=== PATIENT | male | born 1990 | race Two or more races ===

== ENCOUNTER 2017-05-31 04:24 | Emergency (ER) | payer SELFPAY ==
[2017-05-31 08:21] VITALS: BP 112/78
[2017-05-31 08:41] LABS: Albumin 4.4 g/dL (3.2-5.2); BUN/Creatinine Ratio 19.8 (8-20); Calcium 9.5 mg/dL (8.6-10.3); EGFR African American 110.4 (>60); EGFR Non-African American 85.8 (>60); Total Bilirubin 0.4 mg/dL (0.2-1.0); Total Protein 7.4 g/dL (6.4-8.9)
--- NOTE | 2017-06-07 23:10 | ED ---
Colt Quezada Auryana, scribed for Hira Honeycutt MD on 05/31/17 at 0742 . Complex/Multi-Sys Presentation - HPI Summary HPI Summary: 26 year old male presents to the ED s/p blood exposure last night. 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 Patient reports that he had blood contact on the right arm while managing intoxicated individual. He is unsure if he had any facial contact with the blood - unknown status of communicable disease- possibility of drug use. He denies any open scabs or wounds other than insect bites. communicable dz - unknown - drug related - not sure body lfuid exposure PE - DDx - clinicall obvious ad no concern from infectious disease exposure. - History Of Current Complaint Chief Complaint: EDExposureBodyFluid Time Seen by Provider: 05/31/17 07:35 Hx Obtained From: Patient Onset/Duration: Sudden Onset, Resolved Timing: Intermittent, Lasting: Severity Currently: Mild Severity Initially: Mild Location: Negative Associated Signs And Symptoms: Positive: Other - blood contact - no abrasions, or any open wounds - Allergies/Home Medications Allergies/Adverse Reactions: Allergies Allergy/AdvReac Type Severity Reaction Status Date / Time Penicillins Allergy Unknown Unknown Verified 10/24/16 19:45 Reaction Details PMH/Surg Hx/FS Hx/Imm Hx Infectious Disease History: No Infectious Disease History: Reports: History Other Infectious Disease - "STAPH INFECTION" Denies: Traveled Outside the [place] in Last 30 Days - Family History Known Family History: Positive: Diabetes Negative: Other - arthritis - Social History Alcohol Use: Rare Hx Substance Use: No Substance Use Type: Reports: None Hx Tobacco Use: No Smoking Status (MU): Never Smoked Tobacco Review of Systems All Other Systems Reviewed And Are Negative: Yes Physical Exam - Summary Physical Exam Summary: General: Well appearing, no distress Cardiovascular: Skin is well perfused Pulmonary: No respiratory distress, no tachypnea Abdomen: Non-distended Skin: Warm, pink, dry Psych: Normal affect Neuro: A&Ox3 Vital Signs On Initial Exam: Initial Vitals Temp Pulse Resp BP Pulse Ox 97.6 F 97 14 140/84 98 05/31/17 04:29 05/31/17 04:29 05/31/17 04:29 05/31/17 04:29 05/31/17 04:29 Diagnostics - Vital Signs Vital Signs Temp Pulse Resp BP Pulse Ox 05/31/17 04:29 97.6 F 97 14 140/84 98 - Laboratory Lab Results: Lab Results 05/31/17 05/31/17 Range/Units 06:40 06:40 Sodium 135 (133-145) mmol/L Potassium 4.0 (3.5-5.0) mmol/L Chloride 101 (101-111) mmol/L Carbon Dioxide 28 (22-32) mmol/L Anion Gap 6 (2-11) mmol/L BUN 21 (6-24) mg/dL Creatinine 1.06 (0.67-1.17) mg/dL Est GFR ( Amer) 110.4 (>60) Est GFR (Non-Af Amer) 85.8 (>60) BUN/Creatinine Ratio 19.8 (8-20) Glucose 84 (70-100) mg/dL Calcium 9.5 (8.6-10.3) mg/dL Total Bilirubin 0.40 (0.2-1.0) mg/dL AST 26 (13-39) U/L ALT 28 (7-52) U/L Alkaline Phosphatase 53 (34-104) U/L Total Protein 7.4 (6.4-8.9) g/dL Albumin 4.4 (3.2-5.2) g/dL Globulin 3.0 (2-4) g/dL Albumin/Globulin Ratio 1.5 (1-3) Hepatitis C Antibody Nonreactive (Nonreactive) HIV 1&2 Antibody Rapid Cancelled HIV 1&2 Antibody Nonreactive (Nonreactive) Result Diagrams: 05/31/17 06:40 Lab Statement: Any lab studies that have been ordered have been reviewed, and results considered in the medical decision making process. Complex Multi-Symp Course/Dx - Diagnoses Provider Diagnoses: Exposure to blood Discharge - Discharge Plan Condition: Stable Disposition: HOME Patient Education Materials: Body Substance Exposure (ED) Referrals: Robert Garner NP [Primary Care Provider] - 3 Days The documentation as recorded by the Colt inman Auryana accurately reflects the service I personally performed and the decisions made by , Hira Honeycutt MD.
== END 2017-05-31 08:19 | disposition home or self-care (01) ==
LOC: ED 04:24
DX: Z77.21 Contact with and (suspected) exposure to potentially hazardous body fluids (principal); Z88.0 Allergy status to penicillin; Z11.4 Encounter for screening for human immunodeficiency virus [HIV]
CPT/HCPCS: 36415; 80053; 86703; 86803; 99283

== ENCOUNTER 2018-02-17 13:39 | Emergency (ER) | payer SELFPAY ==
[2018-02-17 14:37] VITALS: BP 156/70
--- NOTE | 2018-02-17 15:02 | UC ---
Abdominal Pain Male HPI - HPI Summary HPI Summary: Starting yesterday he began with right lower quadrant abd pain and fever. he has had uri symptoms leading up to this. He denies diarrhea, vomiting, blood in stool, urinary symptoms of any kind. He has no hx of abd surgery and no medical problems. No chronic meds. The pain is a little better today but yeast distiller in rlq. - History of Current Complaint Chief Complaint: UCAbdominalPain Stated Complaint: ABDOMINAL PAIN, FEVER Time Seen by Provider: 02/17/18 14:42 Hx Obtained From: Patient Onset/Duration: Gradual Onset, Lasting Hours Timing: Constant Severity Initially: Moderate Severity Currently: Moderate Pain Intensity: 5 Location: Diffuse, Discrete At: RLQ - There some discomfort in many locations but rlq is the worst. Radiates: No Character: Aching, Cramping Aggravating Factor(s): Nothing Alleviating Factor(s): Nothing Associated Signs And Symptoms: Positive: Fever. Negative: Constipation, Blood in Stool, Urinary Symptoms, Decreased Appetite, Nausea, Vomiting, Diarrhea, Penile Discharge - Allergies/Home Medications Allergies/Adverse Reactions: Allergies Allergy/AdvReac Type Severity Reaction Status Date / Time Penicillins Allergy Unknown Verified 02/17/18 14:31 Reaction Details Home Medications: Home Medications NK [No Home Medications Reported] 02/17/18 [History Confirmed 02/17/18] PMH/Surg Hx/FS Hx/Imm Hx Previously Healthy: Yes - Surgical History Surgical History: None - Family History Known Family History: Positive: Diabetes Negative: Other - arthritis - Social History Alcohol Use: None Substance Use Type: None Smoking Status (MU): Never Smoked Tobacco Review of Systems Constitutional: Fever Gastrointestinal: Abdominal Pain All Other Systems Reviewed And Are Negative: Yes Physical Exam Triage Information Reviewed: Yes Appearance: Well-Appearing, No Pain Distress, Well-Nourished Vital Signs: Initial Vital Signs Temp 99.4 F 02/17/18 14:30 Pulse 82 02/17/18 14:30 Resp 14 02/17/18 14:30 BP 156/70 02/17/18 14:30 Pulse Ox 98 02/17/18 14:30 Vital Signs Reviewed: Yes Eyes: Positive: Conjunctiva Clear ENT: Positive: Normal ENT inspection Neck: Positive: Supple, Nontender, No Lymphadenopathy Respiratory: Positive: Normal breath sounds, No respiratory distress, No accessory muscle use. Negative: Respiratory distress, Decreased breath sounds, Accessory muscle use, Crackles, Rhonchi, Stridor, Wheezing Cardiovascular: Positive: No Murmur, Pulses Normal, Tachycardia Abdomen Description: Positive: No Organomegaly, McBurney's Point Tenderness. Negative: CVA Tenderness (R), CVA Tenderness (L), Distended, Guarding Musculoskeletal: Positive: Strength Intact, ROM Intact, No Edema Neurological: Positive: Alert, Muscle Tone Normal. Negative: Fatigued Psychological: Positive: Age Appropriate Behavior Skin: Negative: rashes Abd Pain Male Course/Dx - Course Course Of Treatment: Discussed at length with patient and significant other about the possibility of appendicitis. This is an atypical presentation. Labs and sed rate may be a good start and possible CT. No ct available here today. D/ w Dr. Goodson in [place] [facility] who accepts patient. - Differential Dx/Clinical Impression Differential Diagnosis/HQI/PQRI: Appendicitis, Constipation, Diverticulitis, Epididymitis, Hepatitis, Pancreatitis, Testicular Torsion, Ureteral Stone, Urinary Tract Infection Provider Diagnoses: acute abd pain. fever. Discharge - Sign-Out/Discharge Documenting (check all that apply): Discharge - Discharge Plan Condition: Guarded Disposition: HOME Patient Education Materials: Acute Abdominal Pain (ED) Referrals: Robert Garner, [employer] ASSISTANT TEACHER [Primary Care Provider] - Additional Instructions: Please report directly to the ED in [place] as we discussed. - Billing Disposition and Condition Condition: GUARDED Disposition: HOME
== END 2018-02-17 14:59 | disposition home or self-care (01) ==
LOC: UCCORT 13:39
DX: R10.31 Right lower quadrant pain (principal); R50.9 Fever, unspecified; Z88.0 Allergy status to penicillin
CPT/HCPCS: 99212; G0463

== ENCOUNTER 2018-05-13 18:51 | Emergency (ER) | payer BC ==
[2018-05-13 19:08] VITALS: BP 122/71
[2018-05-13] MEDS ORDERED: Tetan/Diph/Pertus SYR(Tdap)* 0.5 ML SYR(BOOSTRIX) use SYR IM ONE (19:27)
--- NOTE | 2018-05-13 19:36 | UC ---
Skin Complaint HPI - HPI Summary HPI Summary: scrap and superficial PW to left foot, (patient was barefooted) about 2 hours ago - History of Current Complaint Chief Complaint: UCLowerExtremity Time Seen by Provider: 05/13/18 19:22 Stated Complaint: LEFT FOOT PUNCTURE Hx Obtained From: Patient Onset/Duration: Sudden Onset Timing: Constant Pain Intensity: 1 Pain Scale Used: 0-10 Numeric Location: Discrete - bottom of left foot Aggravating Factor(s): Nothing Alleviating Factor(s): Nothing Associated Signs & Symptoms: Positive: Negative - Allergy/Home Medications Allergies/Adverse Reactions: Allergies Allergy/AdvReac Type Severity Reaction Status Date / Time Penicillins Allergy Unknown Verified 02/17/18 14:31 Reaction Details Home Medications: Home Medications Cholecalciferol TAB* [Vitamin D TAB*] 1 each PO DAILY 05/13/18 [History Confirmed 05/13/18] Multivit-Min/Iron Fum/Folic AC [Htiuo-Cdizvnq-Ffftkwbu Tablet] 1 each PO DAILY 05/13/18 [History Confirmed 05/13/18] [place]-3 Fatty Acids (Nf) [Fish Oil (NF)] 1 each PO DAILY 05/13/18 [History Confirmed 05/13/18] Safflower Oil/Linoleic Acid,Co [Cla 1,000 mg Softgel] 1 each PO DAILY 05/13/18 [ History Confirmed 05/13/18] Review of Systems Constitutional: Negative Skin: Other - small pw/scrap bottom of left foot Eyes: Negative ENT: Negative Respiratory: Negative Cardiovascular: Negative Gastrointestinal: Negative Genitourinary: Negative Motor: Negative Neurovascular: Negative Musculoskeletal: Negative Neurological: Negative Psychological: Negative Is Patient Immunocompromised?: No All Other Systems Reviewed And Are Negative: Yes PMH/Surg Hx/FS Hx/Imm Hx Previously Healthy: Yes - Surgical History Surgical History: None - Family History Known Family History: Positive: Diabetes Negative: Other - arthritis - Social History Occupation: Employed Full-time Lives: With Family Alcohol Use: None Substance Use Type: None Smoking Status (MU): Never Smoked Tobacco Physical Exam Triage Information Reviewed: Yes Appearance: Well-Appearing, No Pain Distress, Well-Nourished Vital Signs: Initial Vital Signs Temp 98.6 F 05/13/18 19:01 Pulse 74 05/13/18 19:01 Resp 16 05/13/18 19:01 BP 122/71 05/13/18 19:01 Pulse Ox 99 05/13/18 19:01 Vital Signs Reviewed: Yes Eye Exam: Normal Eyes: Positive: Conjunctiva Clear ENT Exam: Normal ENT: Positive: Normal ENT inspection, Hearing grossly normal, Pharynx normal. Negative: Trismus, Muffled voice, Hoarse voice Dental Exam: Normal Neck exam: Normal Neck: Positive: Supple, Nontender Respiratory Exam: Normal Respiratory: Positive: Chest non-tender, No respiratory distress, No accessory muscle use Cardiovascular Exam: Normal Cardiovascular: Positive: RRR, Pulses Normal, Brisk Capillary Refill Musculoskeletal Exam: Normal Musculoskeletal: Positive: Strength Intact, ROM Intact, No Edema Neurological Exam: Normal Neurological: Positive: Alert, Muscle Tone Normal Psychological Exam: Normal Skin Exam: Normal Skin: Positive: Other - red area size of pen dot to bottom of left foot Course/Dx - Course Course Of Treatment: up date tetanus, warm soaks, observe for s/s of infection follow with pcp prn - Diagnoses Provider Diagnoses: pw/scrap left foot, update tetanus Discharge - Sign-Out/Discharge Documenting (check all that apply): Discharge/Admit/Transfer - Discharge Plan Condition: Stable Disposition: HOME Patient Education Materials: Diphtheria/Acellular Pertussis/Tetanus Booster Vaccine (By injection), Puncture Wound (ED), Warm Compress or Soak (ED) Forms: *Work Release Referrals: Robert Garner NP [Primary Care Provider] - If Needed - Billing Disposition and Condition Condition: STABLE Disposition: Home
== END 2018-05-13 19:45 | disposition home or self-care (01) ==
LOC: UCCORT 18:51
DX: S91.332A Puncture wound without foreign body, left foot, initial encounter (principal); X58.XXXA Exposure to other specified factors, initial encounter; Y93.9 Activity, unspecified; Y92.9 Unspecified place or not applicable; Z88.0 Allergy status to penicillin
CPT/HCPCS: 90471; 90715; 99211; G0463

== ENCOUNTER 2018-08-17 11:13 | Emergency (ER) | payer BC, OTHER ==
--- NOTE | 2018-08-17 11:17 | ED ---
Lower Extremity - HPI Summary HPI Summary: Pt. is a 28 y.o male who presents to the ER for a right ankle injury that occurred today. 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 No other injuries sustained. Is able to ambulate with pain. Symptoms are mild in severity. Walking makes symptoms worse. Rest makes symptoms better. - History of Current Complaint Stated Complaint: RT ANKLE PAIN Time Seen by Provider: 08/17/18 11:17 Hx Obtained From: Patient - Allergies/Home Medications Allergies/Adverse Reactions: Allergies Allergy/AdvReac Type Severity Reaction Status Date / Time Penicillins Allergy Unknown Verified 08/17/18 11:25 Reaction Details PMH/Surg Hx/FS Hx/Imm Hx Previously Healthy: Yes Infectious Disease History: Reports: History Other Infectious Disease - "STAPH INFECTION" - Family History Known Family History: Positive: Diabetes Negative: Other - arthritis - Social History Occupation: Employed Full-time Lives: With Family Alcohol Use: None Hx Substance Use: No Substance Use Type: Reports: None Hx Tobacco Use: No Smoking Status (MU): Never Smoked Tobacco Review of Systems Positive: Other - right ankle pain Skin: Negative Neurological: Negative Negative: Weakness, Paresthesia, Numbness All Other Systems Reviewed And Are Negative: Yes Physical Exam Triage Information Reviewed: Yes Vital Signs Reviewed: Yes Appearance: Positive: Well-Appearing - Pt. lying in bed in NAD. Pleasant. Skin: Positive: Warm, Dry Head/Face: Positive: Normal Head/Face Inspection Eyes: Positive: Normal, EOMI Neck: Positive: Supple Musculoskeletal: Positive: Other - Moderate soft tissue edema over right lateral malleolus. Good palpable pedial pulse. No foot pain or pain over base of 5th metatarsal. No proximal tib/fib or knee pain. No breaks in the skin. Neurological: Positive: Normal, CN Intact II-III Psychiatric: Positive: Affect/Mood Appropriate Lower Extremity Course/Dx - Course Course Of Treatment: Pt. presenting for isoloated ankle injury. Xray shows soft tissue edema and effusion without fx or dislocation, per radiology. Results discussed with pt. advised ice and elevation. Anti-inflammatories. Ankle was splinted and crutched. Advised to schedule follow-up appointment with orthopedics if pain and swelling persists for further evaluation of possible ligamental tear. Patient understands and agrees with plan. - Diagnoses Differential Diagnosis/HQI/PQRI: Positive: Fracture (Closed), Sprain, Strain Provider Diagnoses: Ankle sprain Discharge - Sign-Out/Discharge Documenting (check all that apply): Patient Departure - Discharge Plan Condition: Good Disposition: HOME Patient Education Materials: Ankle Sprain (ED) Forms: *Work Release Referrals: Blaine Armas MD [Medical Doctor] - Robert Garner NP [Primary Care Provider] - Additional Instructions: Schedule a follow up appointment with orthopedics, Dr. Armas, if swelling and pain persist Ice and elevate Wear splint for comfort and support Tylenol or Motrin for pain as directed Return to ER if symptoms change or worsen - Billing Disposition and Condition Condition: GOOD Disposition: Home
[2018-08-17 11:24] VITALS: BP 144/90
--- NOTE | 2018-08-17 11:49 | RAD ---
HISTORY: injury, lateral malleolus pain COMPARISONS: January 02, 2011 VIEWS: 3 , Frontal, lateral, and oblique views of the right ankle FINDINGS: BONE DENSITY: Normal. BONES: There is no displaced fracture. JOINTS: There is no arthropathy. There is a small joint effusion. ALIGNMENT: There is no dislocation. SOFT TISSUES: There is soft tissue swelling most pronounced along the lateral malleolus. OTHER FINDINGS: None. IMPRESSION: 1. SOFT TISSUE SWELLING. 2. JOINT EFFUSION. 3. NO ACUTE OSSEOUS INJURY. IF SYMPTOMS PERSIST, RECOMMEND REPEAT IMAGING.
== END 2018-08-17 12:30 | disposition home or self-care (01) ==
LOC: ED 11:13
DX: S93.401A Sprain of unspecified ligament of right ankle, initial encounter (principal); X50.9XXA Other and unspecified overexertion or strenuous movements or postures, initial encounter; Y93.02 Activity, running; Y92.9 Unspecified place or not applicable; Z88.0 Allergy status to penicillin
CPT/HCPCS: 99282

== ENCOUNTER 2019-10-04 11:00 | Emergency (ER) | payer BC ==
--- NOTE | 2019-10-04 11:40 | UC ---
Eye Complaint HPI - HPI Summary HPI Summary: 29 yo male presents with an eye complaint. He tells me that he has children at home and they have had friends over recently. This morning pt woke up with his left eye red and crusted shut - used a wash cloth to wipe it away. Has been itching and red since. He does not wear glasses or contacts. Denies fever, chills, sinus symptoms, sore throat, cough, or FB into eye. No vision changes - History of Current Complaint Stated Complaint: LEFT EYE COMPLAINT Time Seen by Provider: 10/04/19 11:40 Hx Obtained From: Patient Onset/Duration: Sudden Onset Timing: Constant Severity Initially: Mild Severity Currently: Mild Pain Intensity: 2 Pain Scale Used: 0-10 Numeric - Allergies/Home Medications Allergies/Adverse Reactions: Allergies Allergy/AdvReac Type Severity Reaction Status Date / Time Penicillins Allergy Unknown Verified 10/04/19 11:42 Reaction Details PMH/Surg Hx/FS Hx/Imm Hx - Additional Past Medical History Additional PMH: None - Surgical History Surgical History: None - Family History Known Family History: Positive: Diabetes Negative: Other - arthritis - Social History Lives: With Family Alcohol Use: None Substance Use Type: None Smoking Status (MU): Never Smoked Tobacco Review of Systems All Other Systems Reviewed And Are Negative: No Constitutional: Positive: Negative Skin: Positive: Negative Eyes: Positive: Drainage, Eye Redness ENT: Positive: Negative Respiratory: Positive: Negative Cardiovascular: Positive: Negative Neurological: Positive: Negative Psychological: Positive: Negative Physical Exam - Summary Physical Exam Summary: GENERAL: WDWN. No pain distress. SKIN: No rashes, sores, lesions, or open wounds. HEENT: Head: AT/NC Eyes: EOM intact. PERRLA. LEFT EYE: Moderate scleral injection. Conjunctiva with mild erythema and inflammation. No appreciable discharge currently. RIGHT EYE: Conjunctiva clear without inflammation or discharge. No FBs appreciated Nose: NTTP maxillary and frontal sinus. NECK: Supple. Nontender. No lymphadenopathy. CHEST: No accessory muscle use. Breathing comfortably and in no distress. CV: Pulses intact. Cap refill <2seconds NEURO: Alert. PSYCH: Age appropriate behavior. Triage Information Reviewed: Yes Vital Signs: Vital Signs: Temp Pulse Resp BP Pulse Ox 98.9 F 94 14 123/71 98 10/04/19 11:43 10/04/19 11:43 10/04/19 11:43 10/04/19 11:43 10/04/19 11:43 Vital Signs Reviewed: Yes Eye Complaint Course/Dx - Course Course Of Treatment: Conjunctivitis - Differential Dx/Diagnosis Provider Diagnosis: Conjunctivitis Discharge ED - Sign-Out/Discharge Documenting (check all that apply): Patient Departure All imaging exams completed and their final reports reviewed: No Studies - Discharge Plan Condition: Stable Disposition: HOME Prescriptions: Ofloxacin 0.3% (Eye Drop) [Ocuflox OPTH 0.3% (Eye Drop)] 1 drop LEFT EYE QID 7 Days #1 btl Patient Education Materials: Conjunctivitis (ED) Referrals: Robert Garner HEAD WELL PULLER [Primary Care Provider] - Additional Instructions: If you develop a fever, shortness of breath, chest pain, new or worsening symptoms - please call your PCP or go to the ED immediately. Your blood pressure was high at todays visit. Please see your primary provider within 4 weeks for recheck and re-evaluation. - Billing Disposition and Condition Condition: STABLE Disposition: Home
[2019-10-04 11:45] VITALS: BP 123/71
== END 2019-10-04 11:56 | disposition home or self-care (01) ==
LOC: UCCORT 11:00
DX: H10.9 Unspecified conjunctivitis (principal); Z88.0 Allergy status to penicillin
CPT/HCPCS: 99212; G0463